=== PATIENT | male | born 1945 | race Hispanic/Latino ===

== ENCOUNTER → 2019-12-31 | Outpatient (CLI) | payer OTHER ==
[~2019-12-31] MED LIST: IOHEXOL 350 MG/ML 100ML INFUS..BTL IV ONE
== END | disposition home or self-care (01) ==
LOC: OIH 08:05
PROVIDERS: ATTEND Internal Medicine Cardiovascular Disease
DX: I71.4 Abdominal aortic aneurysm, without rupture (principal); K57.30 Diverticulosis of large intestine without perforation or abscess without bleeding
CPT/HCPCS: 74174; Q9967

== ENCOUNTER 2020-02-17 17:23 | Observation (INO) | payer OTHER ==
[~2020-02-17] VITALS: Ht 175.3 cm; Wt 74.8 kg
[2020-02-17] MEDS ORDERED: ASPIRIN 325MG EC TAB 325 MG TABLET.DR PO ONE (17:32)
[2020-02-17 17:37] LABS: BASOPHILS % (AUTO) 0.7 % (0.0-5.0); EOSINOPHILS % (AUTO) 2.2 % (0.0-8.0); LYMPHOCYTES % (AUTO) 33.1 % (21.0-51.0); MEAN CORPUSCULAR HEMOGLOBIN 30.7 pg (27.0-33.0); MEAN CORPUSCULAR HGB CONC 34.6 g/dL (32.0-36.0); MEAN CORPUSCULAR VOLUME 88.7 fL (79-99); MONOCYTES % (AUTO) 6.7 % (3.0-13.0); PLATELET COUNT (AUTO) 196 K/uL (130-400); RED BLOOD CELL COUNT(AUTO) 4.62 MIL/uL (4.50-6.20); RED CELL DISTRIBUTION WIDTH 12.4 % (11.0-15.5); WHITE BLOOD COUNT (AUTO) 6.7 K/uL (4.8-10.8)
[2020-02-17 17:50] LABS: CREATININE 0.9 mg/dL (0.5-1.5)
[2020-02-17 17:53] LABS: INR 1.05 (0.85-1.15); PROTHROMBIN TIME 11.3 SEC (9.6-11.6)
[2020-02-17 17:55] LABS: ALBUMIN 3.9 g/dL (3.5-5.0); TOTAL PROTEIN, SERUM 7.3 g/dL (6.0-8.3)
[2020-02-17] MEDS ORDERED: ISOSORBIDE MONO 30MG TAB SR PO ONE (19:16)
[2020-02-17] MEDS ORDERED: ACETAMINOPHEN 325 MG TAB PO PRN ×2 (19:30)
[2020-02-17] MEDS ORDERED: NITROGLYCERIN 0.4 MG SL TAB SL PRN (19:30)
[2020-02-17] MEDS ORDERED: MORPHINE SULFATE 2 MG/ML 1ML SYG IV PRN (19:30)
[2020-02-17] MEDS ORDERED: ENOXAPARIN SODIUM 30 MG/0.3 ML SQ ONE (20:53)
[2020-02-17] MEDS ORDERED: FAMOTIDINE/PF 20 MG/2 ML VIAL IV ONE (20:54)
[2020-02-17] MEDS: FAMOTIDINE/PF 20 MG/2 ML VIAL IV SCH (21:00)
[2020-02-17] MEDS ORDERED: HYDRALAZINE HCL 20 MG/ML VIAL IV PRN (21:00)
[2020-02-18] VITALS (10 sets, daily range): BP systolic 125–166; BP diastolic 60–87
[2020-02-18 06:24] LABS: BASOPHILS % (AUTO) 0.7 % (0.0-5.0); EOSINOPHILS % (AUTO) 4.2 % (0.0-8.0); HEMATOCRIT 38.7 % (42-54); LYMPHOCYTES % (AUTO) 35.6 % (21.0-51.0); MEAN CORPUSCULAR HGB CONC 34.6 g/dL (32.0-36.0); MEAN CORPUSCULAR VOLUME 89.6 fL (79-99); PLATELET COUNT (AUTO) 188 K/uL (130-400); RED BLOOD CELL COUNT(AUTO) 4.32 MIL/uL (4.50-6.20); RED CELL DISTRIBUTION WIDTH 12.4 % (11.0-15.5); WHITE BLOOD COUNT (AUTO) 6.1 K/uL (4.8-10.8)
[2020-02-18 06:40] LABS: INR 1.04 (0.85-1.15); PARTIAL THROMBOPLASTIN TIME 29.2 SEC (26.3-35.5); PROTHROMBIN TIME 11.2 SEC (9.6-11.6)
[2020-02-18 07:51] LABS: HEMOGLOBIN A1C 5.9 % (4.0-6.0)
[2020-02-18] MEDS: ASPIRIN 81MG TAB.CHEW PO SCH (09:00)
[2020-02-18] MEDS: ENOXAPARIN SODIUM 30 MG/0.3 ML SQ SCH (09:00)
[2020-02-18] MEDS: FAMOTIDINE/PF 20 MG/2 ML VIAL IV SCH ×2 (09:00→20:26)
[2020-02-18 09:05] LABS: ALANINE AMINOTRANSFERASE 23 U/L (12-78); ALBUMIN 3.4 g/dL (3.5-5.0); ASPARTATE AMINOTRANSFERASE 15 U/L (10-37); BILIRUBIN,TOTAL 0.8 mg/dL (0.2-1.0); CARBON DIOXIDE 27 mmol/L (21-32); CHLORIDE 106 mmol/L (101-111); CHOLESTEROL 114 mg/dL (<200); CREATINE KINASE, TOTAL 44 U/L (21-232); CREATININE 0.9 mg/dL (0.5-1.5); GLOMERULAR FILTR. RATE CALC 87 mL/min (>60); GLUCOSE,RANDOM 95 mg/dL (70-105); HDL CHOLESTEROL 37 mg/dL (29-71); LDL DIRECT 64 mg/dL (0-99); MYOGLOBIN 41 ng/mL (10-92); POTASSIUM 3.9 mmol/L (3.5-5.1); SODIUM SERUM 141 mmol/L (136-145); TOTAL PROTEIN, SERUM 6.6 g/dL (6.0-8.3); TRIGLYCERIDES 87 mg/dL (30-200); TROPONIN I < 0.04 ng/mL (0.00-0.06); UREA NITROGEN, BLOOD 23 mg/dL (7-18)
[2020-02-18] MEDS ORDERED: FAMOTIDINE/PF 20 MG/2 ML VIAL IV ONE (09:14)
--- NOTE | 2020-02-18 16:53 | NUR ---
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
[2020-02-18] MEDS ORDERED: IOHEXOL 350 MG/ML 100ML INFUS..BTL IV ONE (17:01)
[2020-02-18] MEDS ORDERED: SODIUM BICARB 50MEQ 50ML VIAL 50 ML ONE (17:01)
[2020-02-18] MEDS ORDERED: HEPARIN SODIUM 1000UNIT/ML 10ML VIAL ONE (17:01)
[2020-02-18] MEDS ORDERED: LIDOCAINE HCL 2% 20ML ONE (17:01)
[2020-02-18] MEDS ORDERED: NITROGLYCERIN 2 MG/VIAL VIAL IV ONE (17:01)
[2020-02-18] MEDS ORDERED: MIDAZOLAM HCL 1 MG/ML 2ML VIAL ONE (17:01)
[2020-02-18] MEDS ORDERED: FENTANYL CITRATE PF 50 MCG/1 ML 2ML VIAL ONE (17:01)
[2020-02-18] MEDS ORDERED: NICARDIPINE HCL 25 MG/10 ML ML IV ONE (17:01)
[2020-02-18] MEDS ORDERED: BIVALIRUDIN 250 MG/VIAL IV ONE (17:16)
[2020-02-18] MEDS ORDERED: IOHEXOL-350 75 ML VIAL IV ONE (17:39)
[2020-02-18] MEDS ORDERED: SODIUM CHLORIDE 0.9% 1000ML 1,000 ML IV SCH (18:15)
[2020-02-19 04:28] VITALS: BP 131/78
[2020-02-19] MEDS ORDERED: LISI10TA7 PO (05:43)
[2020-02-19] MEDS ORDERED: ATOR40TA71 PO (05:43)
[2020-02-19] MEDS ORDERED: ASPI-1197 PO (05:43)
[2020-02-19 07:00] VITALS: BP 130/80
[2020-02-19 11:00] VITALS: BP 102/64
[2020-02-19] MEDS: ASPIRIN 81MG TAB.CHEW PO SCH (11:11)
[2020-02-19] MEDS: ENOXAPARIN SODIUM 30 MG/0.3 ML SQ SCH (11:11)
[2020-02-19] MEDS: FAMOTIDINE/PF 20 MG/2 ML VIAL IV SCH (11:11)
[2020-02-19 16:00] VITALS: BP 161/87
== END 2020-02-19 16:21 | disposition home or self-care (01) ==
LOC: EDH 17:23 → EDHIP 19:30 → INTOOBSV 19:30 → 4DH 02-18 18:50
PROVIDERS: ADMIT Internal Medicine; ATTEND Internal Medicine
DX: R07.89 Other chest pain (principal); I25.110 Atherosclerotic heart disease of native coronary artery with unstable angina pectoris; R11.2 Nausea with vomiting, unspecified; I10 Essential (primary) hypertension; E78.5 Hyperlipidemia, unspecified; I71.4 Abdominal aortic aneurysm, without rupture; I25.2 Old myocardial infarction; Z87.891 Personal history of nicotine dependence; Z95.5 Presence of coronary angioplasty implant and graft; Z79.82 Long term (current) use of aspirin; Z79.899 Other long term (current) drug therapy
CPT/HCPCS: 36252; 36415 ×2; 71045; 80053 ×2; 80061; 82550 ×2; 83036; 83874; 84443; 84484 ×2; 85025 ×2; 85610 ×2; 85730 ×2; 93005; 93458; 96361; 96372; 96374; 96376; 99285; C1769 ×3; C1894; G0378 ×6; J1644 ×2; J1650 ×2; J2250; J3010; J3490 ×8; Q9965; Q9967 ×2; 99156; 99157; J0583

== ENCOUNTER → 2020-03-05 | Outpatient (CLI) | payer OTHER ==
[~2020-03-05] MED LIST changes: +ASPI-1197 PO; +ATOR40TA71 PO; -IOHEXOL 350 MG/ML 100ML INFUS..BTL IV ONE; +LISI10TA7 PO
== END | disposition home or self-care (01) ==
LOC: SHCH 13:01
PROVIDERS: ATTEND Internal Medicine Cardiovascular Disease
DX: I73.9 Peripheral vascular disease, unspecified (principal)
CPT/HCPCS: 93922

== ENCOUNTER → 2022-01-21 | Outpatient (CLI) | payer OTHER ==
[~2022-01-21] MED LIST changes: +IOHEXOL 350 MG/ML 100ML INFUS..BTL IV ONE; +LISI10TA24 PO; -LISI10TA7 PO
== END | disposition home or self-care (01) ==
LOC: RAH 09:33
PROVIDERS: ATTEND Internal Medicine Cardiovascular Disease
DX: I71.4 Abdominal aortic aneurysm, without rupture (principal); N40.0 Benign prostatic hyperplasia without lower urinary tract symptoms; K57.30 Diverticulosis of large intestine without perforation or abscess without bleeding; I51.7 Cardiomegaly
CPT/HCPCS: 74174; Q9967

== ENCOUNTER 2023-03-28 17:27 | Observation (INO) | payer OTHER ==
[~2023-03-28] VITALS: Ht 175.3 cm; Wt 84.3 kg
[~2023-03-28 17:27] MED LIST changes: -IOHEXOL 350 MG/ML 100ML INFUS..BTL IV ONE
[2023-03-28 18:15] LABS: BASOPHILS # (AUTO) 0.06 K/uL (0.00-0.20); BASOPHILS % (AUTO) 0.8 % (0.0-5.0); EOSINOPHILS # (AUTO) 0.27 K/uL (0.00-0.70); EOSINOPHILS % (AUTO) 3.7 % (0.0-8.0); HEMATOCRIT 39.3 % (42-54); IMMATURE GRANULOCYTE ABSOLUTE 0.04 K/uL (0-1); LYMPHOCYTES # (AUTO) 1.8 K/uL (1.0-4.8); LYMPHOCYTES % (AUTO) 24.8 % (21.0-51.0); MEAN CORPUSCULAR HEMOGLOBIN 31.5 pg (27.0-33.0); MEAN CORPUSCULAR HGB CONC 35.4 g/dL (32.0-36.0); MEAN CORPUSCULAR VOLUME 89.1 fL (79-99); MONOCYTES # (AUTO) 0.5 K/uL (0.1-1.0); MONOCYTES % (AUTO) 6.9 % (3.0-13.0); NEUTROPHILS # (AUTO) 4.6 K/uL (1.8-7.7); NEUTROPHILS % (AUTO) 63.3 % (40.0-77.0); PLATELET COUNT (AUTO) 185 K/uL (130-400); RED BLOOD CELL COUNT(AUTO) 4.41 MIL/uL (4.50-6.20); WHITE BLOOD COUNT (AUTO) 7.3 K/uL (4.8-10.8)
[2023-03-28 18:22] LABS: CREATININE 0.9 mg/dL (0.5-1.5); POTASSIUM 3.8 mmol/L (3.5-5.1)
[2023-03-28 18:29] LABS: ALBUMIN 3.8 g/dL (3.5-5.0)
[2023-03-28] MEDS ORDERED: ASPIRIN 81MG CHEW TAB PO ONE (18:30)
[2023-03-28] MEDS ORDERED: ASPIRIN 325MG TAB PO ONE (18:30)
[2023-03-28 18:33] LABS: APPEARANCE,URINE CLEAR (CLEAR); BILIRUBIN,URINE NEGATIVE (NEGATIVE); COLOR,URINE LIGHT-YELLOW (YELLOW); GLUCOSE, URINE (UA) NEGATIVE (NEGATIVE); KETONES,URINE NEGATIVE (NEGATIVE); LEUKOCYTE ESTERASE ,URINE NEGATIVE Leu/uL (NEGATIVE); NITRATE,URINE NEGATIVE (NEGATIVE); OCCULT BLOOD,URINE NEGATIVE (NEGATIVE); PH,URINE 5.5 (5.0-8.0); PROTEIN,URINE NEGATIVE (NEGATIVE); UROBILINOGEN,URINE 0.2 mg/dL (0.2-1.0)
[2023-03-28 18:36] LABS: ADD UA MICROSCOPIC YES
[2023-03-28] MEDS ORDERED: NITR0.4T50 SL (20:22)
[2023-03-28] MEDS ORDERED: ATOR20TA65 PO (20:22)
[2023-03-28] MEDS ORDERED: AMLO-257 PO (20:22)
[2023-03-28] MEDS ORDERED: HYDR10 PO (20:22)
[2023-03-28] MEDS ORDERED: CARV6.25 PO (20:22)
[2023-03-28] MEDS ORDERED: ASPI-1443 PO (20:26)
[2023-03-28] MEDS ORDERED: MAGNESIUM 2GM PREMIX 50ML 50 ML IV PRN (20:30)
[2023-03-28] MEDS ORDERED: LACTULOSE 20 GM/30 ML UDCUP PO PRN (20:30)
[2023-03-28] MEDS ORDERED: ONDANSETRON 4MG INJ IVP PRN (20:30)
[2023-03-28] MEDS ORDERED: POTASSIUM CHLORIDE 10% ELIXIR 20 MEQ/15 ML UDCUP PO PRN (20:30)
[2023-03-28] MEDS ORDERED: KCL 20 MEQ ERTAB PO PRN (20:30)
[2023-03-28] MEDS ORDERED: ACETAMINOPHEN 650 MG SUPPOSITORY RC PRN (20:30)
[2023-03-28] MEDS ORDERED: CLONIDINE HCL 0.1 MG TABLET PO PRN (20:30)
[2023-03-28] MEDS ORDERED: GLUCAGON 1MG KIT 1 MG ML IM PRN (20:30)
[2023-03-28] MEDS ORDERED: DEXTROSE 50%-WATER 50 ML DISP.SYRIN IV PRN (20:30)
[2023-03-28] MEDS ORDERED: HYDRALAZINE HCL 10 MG TABLET PO PRN (20:30)
[2023-03-28] MEDS ORDERED: HYDRALAZINE 20MG/ML VIAL IV PRN (20:30)
[2023-03-28] MEDS ORDERED: 0.9%NACL 1000ML 1,000 ML IV SCH (20:30)
[2023-03-28] MEDS ORDERED: NITROGLYCERIN 0.4 MG SL TAB SL SCH (20:30)
[2023-03-28] MEDS ORDERED: ACETAMINOPHEN 325 MG TAB PO PRN (20:30)
[2023-03-28] MEDS ORDERED: POTASSIUM CHLORIDE 20MEQ/100ML 100 ML IV PRN ×2 (20:30)
[2023-03-28] MEDS: INSULIN HUMULIN R 100 UNIT/ML 3ML SQ SCH (21:00)
[2023-03-28] MEDS: CARVEDILOL 6.25 MG TABLET PO SCH (21:00)
[2023-03-28] MEDS: ATORVASTATIN 20 MG TABLET PO SCH (22:00)
[2023-03-28] MEDS: FAMOTIDINE 20MG TAB PO SCH (22:00)
[2023-03-28 22:02] LABS: SARS-CoV-2, RNA, NAAT NEGATIVE SARS CoV-2 (NEGATIVE)
[2023-03-28 22:07] LABS: INFLUENZA TYPE A Negative For Type A (NEGATIVE); INFLUENZA TYPE B Negative For Type B (NEGATIVE)
[2023-03-28] MEDS ORDERED: EZET10TA48 PO (22:42)
[2023-03-28] MEDS ORDERED: LISI10TA24 PO (22:42)
[2023-03-28] MEDS ORDERED: ROSU20TA73 PO (22:42)
[2023-03-28] MEDS ORDERED: SERT-438 PO (22:42)
[2023-03-28 23:30] VITALS: BP 115/77; PULSE 48; RESP 18; O2SAT 98
[2023-03-28 23:41] LABS: INR 1.04 (0.85-1.15)
[2023-03-29] VITALS (7 sets, daily range): BP systolic 107–159; BP diastolic 64–84; PULSE 43–57; RESP 18–20; O2SAT 95–98
[2023-03-29 05:04] LABS: BASOPHILS # (AUTO) 0.04 K/uL (0.00-0.20); BASOPHILS % (AUTO) 0.7 % (0.0-5.0); EOSINOPHILS # (AUTO) 0.22 K/uL (0.00-0.70); EOSINOPHILS % (AUTO) 3.9 % (0.0-8.0); HEMATOCRIT 39.7 % (42-54); IMMATURE GRANULOCYTE ABSOLUTE 0.02 K/uL (0-1); LYMPHOCYTES # (AUTO) 2.4 K/uL (1.0-4.8); LYMPHOCYTES % (AUTO) 43.4 % (21.0-51.0); MEAN CORPUSCULAR HEMOGLOBIN 31.5 pg (27.0-33.0); MEAN CORPUSCULAR HGB CONC 34.5 g/dL (32.0-36.0); MEAN CORPUSCULAR VOLUME 91.3 fL (79-99); MONOCYTES # (AUTO) 0.4 K/uL (0.1-1.0); MONOCYTES % (AUTO) 7.9 % (3.0-13.0); NEUTROPHILS # (AUTO) 2.4 K/uL (1.8-7.7); NEUTROPHILS % (AUTO) 43.7 % (40.0-77.0); PLATELET COUNT (AUTO) 178 K/uL (130-400); RED BLOOD CELL COUNT(AUTO) 4.35 MIL/uL (4.50-6.20); RED CELL DISTRIBUTION WIDTH 12.2 % (11.0-15.5); WHITE BLOOD COUNT (AUTO) 5.6 K/uL (4.8-10.8)
[2023-03-29 05:19] LABS: CREATININE 0.9 mg/dL (0.5-1.5); POTASSIUM 4.4 mmol/L (3.5-5.1)
[2023-03-29 05:38] LABS: B-TYPE NATRIURETIC PEPTIDE 39 pg/mL (0-100)
[2023-03-29] MEDS: INSULIN HUMULIN R 100 UNIT/ML 3ML SQ SCH ×2 (07:13→11:30)
[2023-03-29] MEDS: CARVEDILOL 6.25 MG TABLET PO SCH ×2 (09:00→13:26)
[2023-03-29] MEDS ORDERED: AMLODIPINE 5 MG TAB PO SCH (09:00)
[2023-03-29] MEDS: ASPIRIN 81 MG EC TAB PO SCH (09:15)
[2023-03-29] MEDS: FAMOTIDINE 20MG TAB PO SCH ×2 (09:15→21:53)
[2023-03-29] MEDS: POLYETHYLENE GLYCOL 3350 17 GM POWD.PACK PO SCH (09:15)
[2023-03-29] MEDS: ENOXAPARIN SODIUM 40 MG/0.4 ML SYRINGE SQ SCH (09:15)
[2023-03-29] MEDS ORDERED: AMLODIPINE 5 MG TAB PO ONE (12:30)
[2023-03-29] MEDS: ALPRAZOLAM 0.5 MG TABLET PO SCH ×2 (13:25→21:53)
[2023-03-29] MEDS: ATORVASTATIN 20 MG TABLET PO SCH (21:53)
[2023-03-30 01:00] VITALS: BP 112/63; PULSE 72; RESP 18
[2023-03-30 04:30] VITALS: BP 124/70; PULSE 49; RESP 18
[2023-03-30 07:55] VITALS: O2SAT 98
[2023-03-30] MEDS: ASPIRIN 81 MG EC TAB PO SCH (07:55)
[2023-03-30] MEDS: FAMOTIDINE 20MG TAB PO SCH (07:55)
[2023-03-30] MEDS: POLYETHYLENE GLYCOL 3350 17 GM POWD.PACK PO SCH (07:56)
[2023-03-30] MEDS: ALPRAZOLAM 0.5 MG TABLET PO SCH (07:56)
[2023-03-30] MEDS: CARVEDILOL 6.25 MG TABLET PO SCH (07:56)
[2023-03-30] MEDS: ENOXAPARIN SODIUM 40 MG/0.4 ML SYRINGE SQ SCH (07:57)
[2023-03-30 08:00] VITALS: BP 133/76; PULSE 49; RESP 16
[2023-03-30] MEDS ORDERED: AMLODIPINE 5 MG TAB PO SCH (09:00)
[2023-03-30] MEDS ORDERED: FAMO20TA8 PO (09:36)
[2023-03-30] MEDS ORDERED: SERT-438 PO (09:36)
[2023-03-30] MEDS ORDERED: AMLO-257 PO (09:36)
== END 2023-03-30 11:00 | disposition home or self-care (01) ==
LOC: EDH 17:27 → EDHIP 20:08 → 2DH 23:38
PROVIDERS: ADMIT Internal Medicine Critical Care Medicine; ATTEND Internal Medicine Critical Care Medicine
DX: I16.0 Hypertensive urgency (principal); Z20.822 Contact with and (suspected) exposure to COVID-19; R07.89 Other chest pain; I11.0 Hypertensive heart disease with heart failure; I50.30 Unspecified diastolic (congestive) heart failure; E78.5 Hyperlipidemia, unspecified; I25.10 Atherosclerotic heart disease of native coronary artery without angina pectoris; E78.00 Pure hypercholesterolemia, unspecified; F41.9 Anxiety disorder, unspecified; I25.2 Old myocardial infarction; Z95.5 Presence of coronary angioplasty implant and graft; Z79.899 Other long term (current) drug therapy
CPT/HCPCS: 96360; 96361 ×2; 99285; 84484 ×3; 80053; 85025 ×2; 85378; 85610; 85730; 87804 ×2; 82948 ×3; 81001; 36415 ×2; 87635; 71045 ×2; 93005 ×3; 84145; 96372 ×2; 83735; 84100; 80048; 83880; 93306; 93356; G0378 ×38; J7030; J1650 ×2